=== PATIENT | female | born 1970 | race Two or more races ===

== ENCOUNTER 2020-09-02 07:06 | Day surgery (SDC) | payer OTHER, SELFPAY ==
[~2020-09-02] VITALS: Ht 162.6 cm; Wt 63.5 kg
[2020-09-02] MEDS ORDERED: MIDAZOLAM 5 MG/5 ML VIAL ONE (08:40)
[2020-09-02] MEDS ORDERED: fentaNYL citrate 0.05 MG/ML VIAL ONE (08:40)
[2020-09-02] MEDS ORDERED: LIDOCAINE 2% 100 MG/5 ML UJET TP ONE (08:40)
[2020-09-02] MEDS ORDERED: MIDAZOLAM 2 MG/2 ML VIAL IVP ONE (10:10)
[2020-09-02] MEDS ORDERED: fentaNYL citrate 0.05 MG/ML VIAL IVP ONE (10:10)
== END 2020-09-02 10:35 | disposition home or self-care (01) ==
LOC: MDS 07:06 → MMU 07:06 → MDS 10:35
PROVIDERS: ATTEND Internal Medicine Gastroenterology
DX: Z12.11 Encounter for screening for malignant neoplasm of colon (principal); D12.2 Benign neoplasm of ascending colon; K29.80 Duodenitis without bleeding; K29.70 Gastritis, unspecified, without bleeding; K30 Functional dyspepsia; E11.9 Type 2 diabetes mellitus without complications; E78.00 Pure hypercholesterolemia, unspecified; Z20.828 Contact with and (suspected) exposure to other viral communicable diseases; Z79.84 Long term (current) use of oral hypoglycemic drugs; Z79.899 Other long term (current) drug therapy
CPT/HCPCS: 36415; 43239; 45380; 45385; 81025; 86677; J2250; J3010; U0003